=== PATIENT | female | born 1955 | race Caucasian/White ===

== ENCOUNTER → 2017-03-06 | Outpatient (CLI) | payer OTHER | LOC: FIMAGING 12:13 | PROVIDERS: ATTEND Physician Assistant | DX: M54.5 Low back pain (principal) ==

== ENCOUNTER 2017-05-27 05:34 | Observation (INO) | payer OTHER ==
[2017-05-21 16:35] LABS: PLATELET COUNT 335 10^3/uL (150-400)
--- NOTE | 2017-05-22 14:16 | CPEKG ---
Heart Rate: 89 RR Interval: 674 P-R Interval: 138 QRSD Interval: 80 QT Interval: 360 QTC Interval: 439 P Stokes: 61 QRS Stokes: 32 T Wave Stokes: 46 EKG Severity - ABNORMAL ECG - EKG Impression: SINUS RHYTHM EKG Impression: CHELSEA, CONSIDER BIATRIAL ABNORMALITIES Electronically Signed By: Narciso Oliveira 23-May-2017 08:21:58
[2017-05-27] MEDS ORDERED: ACETAMINOPHEN 500 MG TAB PO ONE (05:52)
[2017-05-27] MEDS ORDERED: ceFAZolin 2 GM/SWFI 2 GM/20 ML SYR IVP ONE (05:52)
[2017-05-27] MEDS ORDERED: GABAPENTIN 300 MG CAP PO ONE (05:52)
[2017-05-27] MEDS ORDERED: LIDOCAINE 1% 2 ML INJ ID PRN (05:53)
[2017-05-27] MEDS ORDERED: LR 1,000 ML IV ONE (05:53)
--- NOTE | 2017-05-27 06:23 | PDHPUP ---
History & Physical Update H&P update statement: This history and physical update is based on an assessment of the patient which was completed after admission or registration (within 24 hours), but prior to the surgery/procedure. H&P update: H&P reviewed & patient examined, no change in patient's condition since H&P completed
[2017-05-27] MEDS ORDERED: BUPIVACAINE 0.25% 30 ML SDV ONE (06:36)
[2017-05-27] MEDS ORDERED: CHLORHEXIDINE GLUC HIBICLENS 118 ML BTL TP ONE (06:36)
[2017-05-27] MEDS ORDERED: BACITRACIN 50,000 UNITS/10 ML SYR IRR ONE (06:36)
[2017-05-27] MEDS ORDERED: THROMBIN (BOVINE) 5,000 UNIT VIAL TP ONE (06:36)
[2017-05-27] MEDS ORDERED: MIDAZOLAM 2 MG/2 ML VIAL IVP ONE (07:11)
--- NOTE | 2017-05-27 07:11 | PDANEPAE ---
ANE History of Present Illness R sided leg pain, lumbar stenosis ANE Past Medical History - Cardiovascular History Hx Hypertension: No Hx Arrhythmias: No Hx Chest Pain: No Hx Coronary Artery / Peripheral Vascular Disease: No Hx CHF / Valvular Disease: No Hx Palpitations: No - Pulmonary History Hx COPD: No Hx Asthma/Reactive Airway Disease: No Hx Recent Upper Respiratory Infection: No Hx Oxygen in Use at Home: No Hx Sleep Apnea: No Sleep Apnea Screening Result - Last Documented: Negative - Neurologic History Hx Cerebrovascular Accident: No Hx Seizures: No Hx Dementia: No - Endocrine History Hx Diabetes: No - Renal History Hx Renal Disorders: No - Liver History Hx Hepatic Disorders: No - Neurological & Psychiatric Hx Hx Neurological and Psychiatric Disorders: Yes Neurological / Psychiatric History Comment: numbness/tingling/burning R leg - Cancer History Hx Cancer: No - Congenital Disorder History Hx Congenital Disorders: No - GI History GERD: mild Hx Gastrointestinal Disorders: No - Other Health History Other Health History: none - Chronic Pain History Chronic Pain: No (right side buttocks to lower extremity) - Surgical History Prior Surgeries: right wrist fracture/repair ANE Review of Systems Review of Systems: - Exercise capacity Exercise capacity: limited by disability METS (RN): 3 METS ANE Patient History - Allergies Allergies/Adverse Reactions: tree nut [Pecans] Allergy (Intermediate, Verified 05/18/17 10:48) Tingling of mouth/throat walnut Allergy (Intermediate, Verified 05/18/17 10:48) Tingling of mouth/throat peas Allergy (Intermediate, Uncoded 05/18/17 10:48) Other-Enter Comments - Home Medications Home Medications: Ascorbic Acid [Vitamin C 500 mg (*)] 500 mg PO DAILY 05/15/17 [Last Taken ] Cholecalciferol Vit D3 [Vitamin D3 (*)] 1,000 units PO DAILY 05/15/17 [Last Taken 05/20/17] Herbals/Supplements -Info Only 1 ea PO DAILY 05/15/17 [Last Taken 05/20/17] Ibuprofen [Motrin (*)] 800 mg PO Q4HRS PRN 05/15/17 [Last Taken 05/20/17] Multivitamins [Multivitamin (*)] 1 each PO DAILY 05/15/17 [Last Taken 05/20/17] Naproxen Sod/Diphenhydramine [Aleve Pm Caplet] 1 each PO HS 05/15/17 [Last Taken 05/20/17] - NPO status NPO Since - Liquids (Date): 05/26/17 NPO Since - Liquids (Time): 23:45 NPO Since - Solids (Date): 05/26/17 NPO Since - Solids (Time): 19:00 - Smoking Hx Smoking Status: Former smoker - Family Anes Hx Family Hx Anesthesia Complications: none ANE Labs/Vital Signs - Labs Result Diagrams: 05/21/17 16:18 - Vital Signs Blood Pressure: 139/84 Heart Rate: 98 Respiratory Rate: 16 O2 Sat (%): 93 Height: 157.48 cm Weight: 71.668 kg ANE Physical Exam - Airway Neck exam: FROM Mallampati Score: Class 3 Mouth exam: normal dental/mouth exam - Pulmonary Pulmonary: no respiratory distress - Cardiovascular Cardiovascular: regular rate and rhythym - ASA Status ASA Status: II ANE Anesthesia Plan Anesthesia Plan: general endotracheal anesthesia
[2017-05-27] MEDS ORDERED: PROPOFOL 200 MG/20 ML VIAL ONE (07:18)
[2017-05-27] MEDS ORDERED: REMIFENTANIL HCL 1 MG VIAL ONE ×2 (07:18→08:51)
[2017-05-27] MEDS ORDERED: fentaNYL 100 MCG/2 ML INJ ONE ×2 (07:18→10:12)
[2017-05-27] MEDS ORDERED: LIDOCAINE 2% 5 ML SDV ONE (07:19)
[2017-05-27] MEDS ORDERED: ROCURONIUM 50 MG/5 ML VIAL ONE (07:19)
[2017-05-27] MEDS ORDERED: PROPOFOL/EMULSION 500 MG/50 ML BOTTLE IV ONE (07:24)
[2017-05-27] MEDS ORDERED: ONDANSETRON 4 MG/2 ML VIAL ONE (08:07)
[2017-05-27] MEDS ORDERED: DEXAMETHASONE 4 MG/ML VIAL ONE (08:07)
[2017-05-27] MEDS ORDERED: PROMETHAZINE HCL 25 MG/ML INJ IVP PRN (08:12)
[2017-05-27] MEDS ORDERED: HYDROmorphONE/DILAUDID 1 MG/ML INJ IVP PRN ×2 (08:12→08:14)
[2017-05-27] MEDS ORDERED: NALOXONE HCL 0.4 MG/ML INJ IVP PRN ×2 (08:12→08:14)
[2017-05-27] MEDS ORDERED: ONDANSETRON 4 MG/2 ML VIAL IVP PRN ×2 (08:12→08:14)
[2017-05-27] MEDS ORDERED: diphenhydrAMINE 25 MG CAP PO PRN (08:14)
[2017-05-27] MEDS ORDERED: HYDROCODONE/APAP 5/325 TAB PO PRN (08:14)
[2017-05-27] MEDS ORDERED: morphINE PCA 30 MG/30 ML PCA IV PRN (08:14)
[2017-05-27] MEDS ORDERED: BISACODYL 10 MG SUPP PR PRN (08:14)
[2017-05-27] MEDS ORDERED: LACTULOSE 20 GM/30 ML UDCUP PO PRN (08:14)
[2017-05-27] MEDS ORDERED: POLYETHYLENE GLYCOL 3350 17 GM PKT PO PRN (08:14)
[2017-05-27] MEDS ORDERED: oxyCODONE IR 5 MG TAB PO PRN (08:14)
[2017-05-27] MEDS ORDERED: MAGNESIUM HYDROXIDE 30 ML UDCUP PO PRN (08:14)
[2017-05-27] MEDS ORDERED: ONDANSETRON DISINTEGRATING 4 MG TAB PO PRN (08:14)
[2017-05-27] MEDS ORDERED: NS W/ 20 KCl/L 1,000 ML IV SCH (08:15)
[2017-05-27] MEDS ORDERED: DEPO METHYLPREDNISOLONE 40 MG/ML SDV ONE (08:17)
[2017-05-27] MEDS ORDERED: HYDROmorphONE/DILAUDID 2 MG/ML INJ ONE (08:59)
--- NOTE | 2017-05-27 09:50 | POSTANESTH ---
Post Anesthetic Evaluation Cardiovascular Status: Normal, Stable Respiratory Status: Normal, Stable Level of Consciousness/Mental Status: Alert and Oriented Pain Control: Adequate, Prn Tx Ordered Nausea/Vomiting Control: Adequate, Prn Tx Ordered Complications Possibly Related to Anesthesia: None Noted
--- NOTE | 2017-05-27 09:55 | SOAPPROG ---
SOAP Progress Note Assessment/Plan: Post Op Visit: S: Awake and alert. NAD. Pt with expected lower back pain O: AFVSS/PERRLA/EOMI no droop CN 2-12 grossly intact +lt touch 5/5 BUE/BLE = CDI A/P: 62 yo female that is s/p right L4/5 and L5/S1 decompression -orders in place -call with any questions or concerns -take medications as directed -pt seen by Dr Woodard as well 05/27/17 09:50 Objective: Vital Signs Temp Pulse Resp BP Pulse Ox 37 C 98 16 139/84 H 93 05/27/17 06:18 05/27/17 08:12 05/27/17 08:12 05/27/17 08:12 05/27/17 08:12 Laboratory Results 05/21/17 16:18 ICD10 Worksheet Patient Problems: Problems Problem Status Onset Lumbar radicular pain Acute Lumbar stenosis Acute - ICD10 Problem Qualifiers (1) Lumbar stenosis (2) Lumbar radicular pain
[2017-05-27] MEDS ORDERED: METHOCARBAMOL 750 MG TAB ONE (10:13)
[2017-05-27] MEDS: fentaNYL 100 MCG/2 ML INJ IVP PRN ×2 (10:14→10:33)
[2017-05-27] MEDS: METHOCARBAMOL 750 MG TAB PO PRN (10:18)
[2017-05-27] MEDS: SENNOSIDES/DOCUSATE SODIUM TAB PO SCH ×2 (13:06→21:23)
[2017-05-27] MEDS: FAMOTIDINE 20 MG TAB PO SCH ×2 (13:06→21:23)
--- NOTE | 2017-05-27 13:28 | GOP ---
[f rep st] OPERATIVE REPORT DATE OF OPERATION: 05/27/2017 SURGEON: Margo Woodard MD NEUROSURGEON: Margo Woodard MD INTERNAL COMMUNICATIONS MANAGER: Rishabh Avila PA-C PREOPERATIVE DIAGNOSIS: Lumbar spondylolisthesis with stenosis L3-4, L4-5; right lumbar facet arthro pearl, L5-S1; with severe right lateral recess stenosis L5-S1. POSTOPERATIVE DIAGNOSIS: Lumbar spondylolisthesis with stenosis L3-4, L4-5; right lumbar facet arthr opathy, L5-S1; with severe right lateral recess stenosis L5-S1. PROCEDURE PERFORMED: Right L4-5, L5-S1 hemilaminotomy with a right L5 hemilaminectomy, with a right lateral recess decompression, L4-5, L5-S1 ([id number], [id number]), microscope. FINDINGS: ESTIMATED BLOOD LOSS: 25 cc. INDICATIONS: The patient is a 62-year-old who I saw in the office with right leg pain. Most impress ively, on her study, she has a spondylolisthesis at L3-4, L4-5, and I really thought she was ultimate ly headed to a two-level lumbar fusion, but looking at the MRI more closely, she had a lot of right S 1 symptoms and there was severe right-sided facet arthropathy at L5-S1 with an exophytic growth or sy novial cyst coming out of the right L5-S1 facet joint compressing the right S1 root, and I thought th is was probably the source of much of her pain. She also had severe stenosis at 4-5 and, given the r ight-sided symptoms and the proximity of this to the problem at L5-S1, I thought a right hemilaminoto my at L4-5 was reasonable, and so she was booked for a two-level decompression. I did feel that she may ultimately progress to a lumbar fusion. The decompressions would not lead to resolution of her i nstability at L3-4 and L4-5 and, in fact, could make them worse and she understood this, but she want ed to try a smaller procedure. The risks of nerve injury, spinal fluid leak, continued symptoms were discussed and she also knew that she may require more substantial surgery. She did want to proceed. She knew there was risk of infection. DESCRIPTION OF PROCEDURE: The patient was taken to the operating room, placed in supine position. G eneral anesthesia was begun. She was flipped prone onto the Shahram frame. Care was taken to pad all points of contact. Her back was sterilely prepped and draped by the surgeon. A localizing x-ray wa s taken. We made a midline incision above the L4-5 and L5-S1 interspaces, 2.5 cm long. The subcutan eous tissue was dissected using Bovie cautery down to the fascia and a subperiosteal dissection was m bryan down the right L4-5, L5-S1 lamina. Self-retaining retractors placed. Localizing x-ray was taken . We drilled a right L4-5, L5-S1 hemilaminotomy. We began at L5-S1 where I opened ligamentum flavum under the microscope and decompressed the right lateral recess. We started up relatively high above the disk itself and then worked our way down along the S1 root. There was really a very large excre scence coming off the right L5-S1 joint and protruding in the spinal canal, exactly what the MRI demo nstrated. There were portions of it that were adherent to the S1 root and the thecal sac, and we wer e able to dissect these free. We were able to drill this away from its attachment to the superior ar ticular process of the sacrum and we got an excellent decompression all the way down mid S1 pedicle, totally freeing the S1 root. I was very happy with this decompression. It was, in fact, probably a calcified synovial cyst, was actually the mass that we removed in the lateral recess. We went up to the L4-5 level where we performed a right hemilaminotomy with a medial facetectomy. Th ere was a deep notch in the rostral arch of L5 and the superior articular process of L5, consistent w ith the spondylolisthesis and we removed the medial portion of facet. We did not remove more than 50 % of the facet joint. The IAP of L4 was intact. We decompressed the L5 root down along the L5 pedic le and then followed it into the neural foramen at L5-S1. I went ahead and removed the right rostral arch of L5 as the dura both above and below this were bulging out over this arch, so after the decom pressions were done and I was unhappy with the appearance, we simply removed this. There was no sign ificant dural prolapse through our laminotomy sites and I was very happy once this was done. We irri gated with antibiotic saline solution, placed some Depo-Medrol with Marcaine over the right L5 and S1 roots. We then closed the incision in multiple layers using Vicryl sutures. A running PDS was plac ed in the skin. The patient was reversed from anesthesia, extubated, and transferred to [facility] in stable condition. COMPLICATIONS: None. /[id number]/MODL
[2017-05-27] MEDS ORDERED: ACETAMINOPHEN 500 MG TAB PO SCH (14:00)
[2017-05-27] MEDS ORDERED: ceFAZolin 2 GM/DEXTROSE 100 ML IV SCH (14:00)
[2017-05-27] MEDS: ceFAZolin 2 GM/SWFI 2 GM/20 ML SYR IVP SCH ×2 (15:18→21:23)
[2017-05-28] MEDS: METHOCARBAMOL 750 MG TAB PO PRN (02:24)
--- NOTE | 2017-05-28 07:49 | NEUSURGPN ---
Date of Surgery: 05/27/17 Post Op Day: 1 Assessment/Plan: Assessment: 62 yo female that is s/p right L4/5 and L5/S1 decompression POD #1 Plan: -s/p L spine decompression: pt states that she has some lower back pain that is expected. The RLE pain is better and she is happy with this result -PT/OT ordered -no bending or twisting -pt is on oxycodone -pt ready for dc home -dc home once cleared by RN/PT/OT -orders in place -call with any questions or concerns -take medications as directed -pt seen by Dr Woodard as well Subjective: Awake and alert. NAD. Eating/drinking and voiding. No howard/neck/chest/abd or gu complaints. No f/c/n/v/d. Objective: AFVSS/PERRLA/EOMI no droop CN 2-12 grossly intact +lt touch 5/5 BUE/BLE = CDI Neuro Check Frequency: per routine Urinary Catheter in Place: No - Physician Discussed Patient with : Vance Patient Seen by : Vance Neurosurgery Physical Exam - Vitals, I&O, Labs I and O 05/27/17 05/28/17 05/29/17 05:59 05:59 05:59 Intake Total 3390 Output Total 1675 150 Balance 1715 -150 Weight 71.6 kg Intake: Oral (ml) 2190 IV Intake (ml) 1200 Output: Urine (ml) 1650 150 Toilet 1650 150 Estimated Blood Loss (ml) 25 Other: Intake Quantity Yes Sufficient Number of Voids Toilet 1 Vital Signs Temp Pulse Resp BP Pulse Ox 36.4 C 103 H 17 123/61 H 94 05/28/17 04:00 05/28/17 04:00 05/28/17 04:00 05/28/17 04:00 05/28/17 04:00 Laboratory Results 05/21/17 16:18 ICD10 Worksheet Patient Problems: Problems Problem Status Onset Lumbar radicular pain Acute Lumbar stenosis Acute - ICD10 Problem Qualifiers (1) Lumbar stenosis (2) Lumbar radicular pain
[2017-05-28 08:26] VITALS: BP 102/49; PULSE 115; RESP 16; TEMP 98.4; O2SAT 90
[2017-05-28] MEDS: FAMOTIDINE 20 MG TAB PO SCH (09:33)
[2017-05-28] MEDS: SENNOSIDES/DOCUSATE SODIUM TAB PO SCH (09:33)
[2017-05-30] MEDS ORDERED: ENOXAPARIN 40 MG/0.4 ML SYR SC SCH (09:00)
== END 2017-05-28 12:34 | disposition home or self-care (01) ==
LOC: F3N 05:34
PROVIDERS: ADMIT Neurological Surgery; ATTEND Neurological Surgery
DX: M48.062 Spinal stenosis, lumbar region with neurogenic claudication (principal); M48.07 Spinal stenosis, lumbosacral region; M43.16 Spondylolisthesis, lumbar region
CPT/HCPCS: 63030; 63035; 76001; 93005; 97161; 97166; G0378; J0171; J0690; J1030; J1100; J1170; J2250; J2405; J2704; J3010